=== PATIENT | male | born 1970 | race Caucasian/White ===

== ENCOUNTER 2021-01-16 18:16 | Emergency (ER) | payer MEDICAID ==
[~2021-01-16] VITALS: Ht 182.9 cm; Wt 81.8 kg
[~2021-01-16 18:16] MED LIST: AMOX1TAB16 PO; ASPI-1444 PO; DOXY50 PO; INSLAN SQ; LISI-894 PO; SIMV-259 PO
[2021-01-16] MEDS ORDERED: AMLO5TAB66 PO (18:33)
[2021-01-16] MEDS ORDERED: ATOR40TA71 PO (18:33)
[2021-01-16] MEDS ORDERED: METF-960 PO (18:33)
[2021-01-16] MEDS ORDERED: LIDOCAINE 1% 10 ML VIAL ONE (18:37)
[2021-01-16] MEDS ORDERED: TraMADol HCL 50 MG TABLET PO ONE (20:15)
[2021-01-16] MEDS ORDERED: IBUPROFEN 600 MG TABLET PO ONE (20:15)
[2021-01-16 20:39] VITALS: BP 138/78
== END 2021-01-16 20:44 | disposition home or self-care (01) ==
LOC: EMS 18:18
DX: S61.412A Laceration without foreign body of left hand, initial encounter (principal); E11.9 Type 2 diabetes mellitus without complications; E78.00 Pure hypercholesterolemia, unspecified; I10 Essential (primary) hypertension; Z88.6 Allergy status to analgesic agent; Z79.84 Long term (current) use of oral hypoglycemic drugs; Z87.891 Personal history of nicotine dependence; W26.0XXA Contact with knife, initial encounter; Y93.89 Activity, other specified; Y92.89 Other specified places as the place of occurrence of the external cause; Y99.8 Other external cause status
CPT/HCPCS: 12001; 99283; J3490; 29280